=== PATIENT | female | born 1985 ===

== ENCOUNTER → 2023-10-14 14:30 | Outpatient (CLI) | payer OTHER, MEDICAID, SELFPAY ==
[2023-10-14 15:28] LABS: Influenza A - CEPHEID Flu A NEGATIVE (NEGATIVE); Influenza B - CEPHEID Flu B NEGATIVE (NEGATIVE); Respiratory Syncytial Virus Negative (Negative)
[2023-10-14 15:35] LABS: COVID-19 CEPHEID 4-PLEX PCR Negative (Negative)
== END ==
PROVIDERS: Visit Provider Registered Nurse
DX: Z20.828 Contact with and (suspected) exposure to other viral communicable diseases (principal)
CPT/HCPCS: 0241U

== ENCOUNTER 2023-12-03 10:37 | Emergency (ER) | payer OTHER, MEDICAID, SELFPAY ==
[2023-12-03 10:40] VITALS: BP 150/78; PULSE 103; RESP 22; TEMP 36.6; O2SAT 100; BMI 32.3
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
--- NOTE | 2023-12-03 14:56 | PC.NURSE ---
Lab arrived to draw patient blood and patient declined to have blood drawn. Patient expressed wanting to leave per SPACE PHYSICIST. SPACE PHYSICIST informed provider.
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
== END 2023-12-03 14:28 | disposition home or self-care (01) ==
PROVIDERS: Emergency Provider Emergency Medicine
DX: R45.851 Suicidal ideations (principal)
CPT/HCPCS: 99281

== ENCOUNTER 2024-05-01 15:48 | Emergency (ER) | payer OTHER, MEDICAID, SELFPAY ==
--- NOTE | 2024-05-01 16:18 | PC.NURSE ---
Patient called into triage room at 1615, patient independently ambulated into triage room with male layboy tender. This RN asked patient about what reason/symptoms she presents to ER with. At that moment another staff member interrupted triage to give this RN a quick update on department acuity and bed availability. This RN then returned attention to patient to continue triage. Patient asked if ER was full. This RN explained that it is busy but that we will complete her triage and began work up as necessary. Patient promptly stood up and said never mind, I'm going to [place]. Patient exited Triage room and then proceeded to exit ER lobby through front entrance with male layboy tender. This RN was unable to collect any information about patient's presenting symptoms other than what she checked in at registration desk for (Chest Px, Leg Px).
== END 2024-05-01 17:23 | disposition left against medical advice (07) ==
PROVIDERS: Emergency Provider Emergency Medicine
DX: R07.9 Chest pain, unspecified (principal)